=== PATIENT | female | born 1955 | race Caucasian/White ===

== ENCOUNTER 2022-05-16 12:27 | Emergency (ER) | payer MEDICARE, SELFPAY ==
[2022-05-16 12:34] VITALS: BP 146/76; PULSE 81; RESP 16; TEMP 36.4; O2SAT 96; BMI 34.7
--- NOTE | 2022-05-16 15:17 | ED_ITS ---
HPI - General Adult General: Chief complaint: General Medical Stated complaint: Out of meds Time Seen by Provider: 05/16/22 14:02 Source: patient Mode of arrival: ambulatory History of Present Illness: 67-year-old female presents emergency room requesting refill on hydrocodone. She had an accident earlier this year has knee pain that has been getting worse she changed physicians recently moved to this area she had seen Dr. Dias in the urgent care clinic once he had refilled some hydrocodone she has not seen anyone else evidently to this point is coming in requesting refill of her hydrocodone she denies any other recent injuries the pain is a chronic issue left over from the previous accident. Onset (ago): month(s) Location: left, right and lower extremity (Knees) Severity: severe Quality: aching Pain Consistency: constant Relieving factors: none Exacerbating factors: none Associated symptoms: Deny chest pain, confusion, cough, diaphoresis, decreased appetite, dyspnea, fevers/chills, headache(s), malaise, nausea, rash, palpitations, seizures, short of breath, syncope, vomiting or weakness Treatments prior to arrival: none Review of Systems Const: Denies: fever(s), chills, malaise or diaphoresis Card: Denies: chest pain, palpitations or syncope Resp: Denies: dyspnea GI: Denies: abdominal pain, nausea or vomiting Musc: Reports: joint pain Skin/Breast: Denies: rash Neuro: Denies: headache(s) or confusion PFS ED PFSH: Medical History (Updated 05/16/22 @ 15:19 by Bassam Groves DO) Hyperlipidemia Hypothyroidism Osteoarthritis of knees, bilateral Social History Smoking and tobacco status: never smoked Physical Exam Const: COMMON NORMALS: no acute distress GENERAL APPEARANCE: cooperative and comfortable ORIENTATION/CONSCIOUSNESS: Yes awake, Yes oriented to person, Yes oriented to place and Yes oriented to time HENMT: COMMON NORMALS: normocephalic and atraumatic HEAD & SCALP: normoc ephalic and atraumatic Neuro: SENSORIUM/ORIENTATION: Yes oriented to person, Yes oriented to place and Yes oriented to time Course Vital Signs: Vital signs: Vital Signs Temperature 97.5 F L 05/16/22 12:34 Pulse Rate 81 05/16/22 12:34 Respiratory Rate 16 05/16/22 12:34 Blood Pressure 146/76 05/16/22 12:34 Pulse Oximetry 96 05/16/22 12:34 Oxygen Delivery Me thod 05/16/22 12:34 MDM - General Adult Medical Decision Making Discussed patient we do not feel narcotics in the emergency room for chronic pain problems we will try to make arrangements for her to follow-up and establish with a PCP here in town. Medical Records I reviewed the patient's medical records. Lab Data I reviewed the patient's lab results. Discharge Plan Discharge Patient Disposition: Home Clinical Impression: Bilateral knee pain Condition: Stable Prescriptions: New diclofenac sodium 75 mg tablet,delayed release (DR/EC) 75 mg PO Q12H PRN (Reason: pain) Qty: 20 0RF No Action levothyroxine 137 mcg capsule 137 mcg PO DAILY tramadol 50 mg tablet 50 mg PO Q8H PRN zolpidem 10 mg tablet 10 mg PO .h.s. amlodipine 10 mg tablet 10 mg PO DAILY atorvastatin 20 mg tablet 20 mg PO DAILY ropinirole 0.5 mg tablet 0.5 mg PO DAILY trazodone 50 mg tablet 50 mg PO BID hydrocodone-acetaminophen 10-325 mg tablet 1 tab PO BID PRN (Reason: pain) 7 Days Qty: 14 0RF Discharge Orders: Discharge ED (Routine); Ordered 05/16/22 Ordered By: Bassam Groves Discharge Diet: Usual diet Discharge Activity: Increase activity as tolerated Patient Instructions: Opioid Safety Activity Restrictions/Additional Instructions: This management will make arrangements for you to follow-up with someone in the primary care office to establish. Coding Level of Care Code ED Well [employer] Captain for Rabia Streeter
== END 2022-05-16 14:26 | disposition home or self-care (01) ==
PROVIDERS: Emergency Provider Family Medicine
DX: M25.562 Pain in left knee (principal); M25.561 Pain in right knee; E78.5 Hyperlipidemia, unspecified
CPT/HCPCS: 99283

== ENCOUNTER → 2022-06-06 09:47 | Outpatient (BNVA) | payer MEDICARE, SELFPAY | PROVIDERS: Visit Provider Family Medicine | DX: M25.561 Pain in right knee (principal); M25.562 Pain in left knee; G47.00 Insomnia, unspecified; R42 Dizziness and giddiness; E78.5 Hyperlipidemia, unspecified; E03.9 Hypothyroidism, unspecified; Z76.89 Persons encountering health services in other specified circumstances; E11.9 Type 2 diabetes mellitus without complications | CPT/HCPCS: 80053; 80061; 83036; 84439; 84443; 85025 ==

== ENCOUNTER 2022-06-23 11:55 | Outpatient (CLI) | payer MEDICARE, SELFPAY ==
--- NOTE | 2022-06-23 12:17 | XR_ITS ---
WS: [id number] Exam: XR shoulder RT min 2V* [id number] Date/Time of Exam: 06/23/2022 12:17 PM Reason For Exam: Right shoulder pain No acute fracture or dislocation. Moderately advanced DJD at the glenohumeral joint. Mild DJD at the AC joint. Normal soft tissues. XR/XR shoulder RT min 2V* [id number] IMPRESSION: 1. Moderate degenerative changes as noted above. 2. No fracture or dislocation.
== END 2022-06-23 11:56 | disposition home or self-care (01) ==
LOC: RAD 11:58
PROVIDERS: PCP Family Medicine; Visit Provider Family Medicine
DX: M25.511 Pain in right shoulder (principal); S49.91XA Unspecified injury of right shoulder and upper arm, initial encounter; X58.XXXA Exposure to other specified factors, initial encounter
CPT/HCPCS: 73030

== ENCOUNTER → 2022-11-17 09:09 | Outpatient (BNVA) | payer MEDICARE, SELFPAY | PROVIDERS: PCP Family Medicine; Visit Provider Nurse Practitioner Family | DX: M19.011 Primary osteoarthritis, right shoulder (principal) | CPT/HCPCS: 20610; 73030; 99214; J1100; J2795; J3301 ==

== ENCOUNTER → 2023-09-06 09:01 | Outpatient (BNVA) | payer MEDICARE, SELFPAY | PROVIDERS: PCP Family Medicine; Visit Provider Family Medicine | DX: Z23 Encounter for immunization (principal); E11.9 Type 2 diabetes mellitus without complications; E78.5 Hyperlipidemia, unspecified; E03.9 Hypothyroidism, unspecified; G47.00 Insomnia, unspecified; M25.561 Pain in right knee; M25.562 Pain in left knee; E78.49 Other hyperlipidemia; M17.0 Bilateral primary osteoarthritis of knee; M19.011 Primary osteoarthritis, right shoulder; M25.511 Pain in right shoulder | CPT/HCPCS: 80053; 80061; 83036; 84439; 84443; 85025 ==

== ENCOUNTER → 2024-07-04 11:25 | Outpatient (BNVA) | payer MEDICARE, SELFPAY | PROVIDERS: PCP Family Medicine; Visit Provider Family Medicine | DX: R79.89 Other specified abnormal findings of blood chemistry (principal); E78.49 Other hyperlipidemia; E11.9 Type 2 diabetes mellitus without complications; E03.9 Hypothyroidism, unspecified; E55.9 Vitamin D deficiency, unspecified | CPT/HCPCS: 80053; 80061; 82306; 82607; 83036; 84439; 84443; 85025 ==

== ENCOUNTER → 2024-09-09 10:00 | Outpatient (BNVA) | payer MEDICARE, SELFPAY | PROVIDERS: PCP Family Medicine; Visit Provider Family Medicine | DX: E03.9 Hypothyroidism, unspecified (principal); E87.6 Hypokalemia; Z79.899 Other long term (current) drug therapy | CPT/HCPCS: 84439; 84443 ==

== ENCOUNTER → 2025-05-22 11:30 | Outpatient (BNVA) | payer MEDICARE, SELFPAY | PROVIDERS: PCP Family Medicine; Visit Provider Family Medicine | DX: E55.9 Vitamin D deficiency, unspecified (principal); I10 Essential (primary) hypertension; E78.49 Other hyperlipidemia; E11.9 Type 2 diabetes mellitus without complications; E03.9 Hypothyroidism, unspecified; R79.89 Other specified abnormal findings of blood chemistry | CPT/HCPCS: 80053; 80061; 82306; 82607; 84439; 84443; 85025 ==

== ENCOUNTER → 2025-08-27 10:04 | Outpatient (BNVA) | payer MEDICARE, SELFPAY | PROVIDERS: PCP Family Medicine; Visit Provider Family Medicine | DX: E11.9 Type 2 diabetes mellitus without complications (principal) | CPT/HCPCS: 83036 ==